=== PATIENT | female | born 1995 | race Hispanic/Latino ===

== ENCOUNTER 2023-01-10 06:04 | Emergency (ER) | payer OTHER ==
[~2023-01-10] VITALS: Ht 157.5 cm; Wt 77.1 kg
[2023-01-10 08:07] LABS: BASOPHILS # (AUTO) 0.04 K/uL (0.00-0.20); BASOPHILS % (AUTO) 0.5 % (0.0-5.0); EOSINOPHILS # (AUTO) 0.05 K/uL (0.00-0.70); EOSINOPHILS % (AUTO) 0.6 % (0.0-8.0); HEMATOCRIT 38.4 % (36-48); IMMATURE GRANULOCYTE ABSOLUTE 0.04 K/uL (0-1); LYMPHOCYTES # (AUTO) 2.7 K/uL (1.0-4.8); LYMPHOCYTES % (AUTO) 34.8 % (21.0-51.0); MEAN CORPUSCULAR HEMOGLOBIN 26.3 pg (27.0-33.0); MEAN CORPUSCULAR HGB CONC 31.8 g/dL (32.0-36.0); MEAN CORPUSCULAR VOLUME 82.8 fL (79-99); MONOCYTES # (AUTO) 0.5 K/uL (0.1-1.0); NEUTROPHILS # (AUTO) 4.5 K/uL (1.8-7.7); NEUTROPHILS % (AUTO) 57.6 % (40.0-77.0); PLATELET COUNT (AUTO) 271 K/uL (130-400); RED BLOOD CELL COUNT(AUTO) 4.64 MIL/uL (4.00-5.50); RED CELL DISTRIBUTION WIDTH 13.4 % (11.0-15.5); WHITE BLOOD COUNT (AUTO) 7.7 K/uL (4.8-10.8)
[2023-01-10 08:19] LABS: CREATININE 0.6 mg/dL (0.5-1.5)
[2023-01-10 08:24] LABS: ALBUMIN 3.8 g/dL (3.5-5.0); BILIRUBIN,TOTAL 0.1 mg/dL (0.2-1.0); TOTAL PROTEIN, SERUM 7.8 g/dL (6.0-8.3)
[2023-01-10 11:14] VITALS: BP 137/80; PULSE 78; RESP 18; O2SAT 99
== END 2023-01-10 11:54 | disposition home or self-care (01) ==
LOC: EDH 06:04
DX: F10.129 Alcohol abuse with intoxication, unspecified (principal); V89.2XXA Person injured in unspecified motor-vehicle accident, traffic, initial encounter; Y93.I9 Activity, other involving external motion; Y92.488 Other paved roadways as the place of occurrence of the external cause; Y99.8 Other external cause status
CPT/HCPCS: 36415; 70450; 72125; 80053; 84703; 85025

== ENCOUNTER 2023-11-25 11:06 | Emergency (ER) | payer SELFPAY ==
[~2023-11-25] VITALS: Ht 157.5 cm; Wt 77.1 kg
[2023-11-25] MEDS: acetaMINOPHEN 500 MG TABLET PO ONE (12:54)
[2023-11-25] MEDS: AMOX/CLAV 875/125MG TAB PO ONE (12:55)
[2023-11-25] MEDS: OCTYL 2-CYANOACRYLATE 1 EACH TP SCH (12:55)
[2023-11-25] MEDS: teTANUS/diphthERIA TOXOID [ADULT] 0.5 ML VIAL IM ONE (12:56)
[2023-11-25 13:02] VITALS: BP 155/91; PULSE 82; RESP 20; TEMP 97.9; O2SAT 99
[2023-11-25] MEDS ORDERED: AMOX1TAB16 PO (13:04)
[2023-11-25] MEDS ORDERED: IBUP-2077 PO (13:04)
== END 2023-11-25 13:19 | disposition home or self-care (01) ==
LOC: EDH 11:06
DX: S01.111A Laceration without foreign body of right eyelid and periocular area, initial encounter (principal); S21.051A Open bite of right breast, initial encounter; S21.052A Open bite of left breast, initial encounter; Y04.1XXA Assault by human bite, initial encounter; Y93.89 Activity, other specified; Y92.89 Other specified places as the place of occurrence of the external cause; Y99.8 Other external cause status
CPT/HCPCS: 12011; 70200; 90471; 90714